=== PATIENT | male | born 1965 | race Hispanic/Latino ===

== ENCOUNTER 2021-06-05 14:24 | Emergency (ER) | payer OTHER ==
[~2021-06-05] VITALS: Ht 160 cm; Wt 90.7 kg
[2021-06-05 15:06] LABS: BASOPHILS % (AUTO) 0.3 % (0.0-5.0); EOSINOPHILS % (AUTO) 0.1 % (0.0-8.0); HEMATOCRIT 31.8 % (42-54); LYMPHOCYTES % (AUTO) 28.3 % (21.0-51.0); MEAN CORPUSCULAR HEMOGLOBIN 30.7 pg (27.0-33.0); MEAN CORPUSCULAR HGB CONC 33.3 g/dL (32.0-36.0); MEAN CORPUSCULAR VOLUME 92.2 fL (79-99); MONOCYTES % (AUTO) 5.8 % (3.0-13.0); PLATELET COUNT (AUTO) 272 K/uL (130-400); RED BLOOD CELL COUNT(AUTO) 3.45 MIL/uL (4.50-6.20); RED CELL DISTRIBUTION WIDTH 13.1 % (11.0-15.5); WHITE BLOOD COUNT (AUTO) 7.6 K/uL (4.8-10.8)
[2021-06-05 15:23] LABS: CREATININE 0.8 mg/dL (0.5-1.5); POTASSIUM 4.2 mmol/L (3.5-5.1)
[2021-06-05 15:27] LABS: ALBUMIN 3.7 g/dL (3.5-5.0); BILIRUBIN,TOTAL 0.2 mg/dL (0.2-1.0); TOTAL PROTEIN, SERUM 7.5 g/dL (6.0-8.3)
[2021-06-05 16:56] LABS: INR 0.98 (0.85-1.15); PROTHROMBIN TIME 10.7 SEC (9.6-11.6)
[2021-06-05 16:57] LABS: PARTIAL THROMBOPLASTIN TIME 25.1 SEC (26.3-35.5)
[2021-06-05 17:01] LABS: APPEARANCE,URINE Cloudy (CLEAR); BILIRUBIN,URINE Negative (NEGATIVE); COLOR,URINE Yellow (YELLOW); GLUCOSE, URINE (UA) 250 mg/dL (NEGATIVE); KETONES,URINE Trace mg/dL (NEGATIVE); LEUKOCYTE ESTERASE ,URINE Moderate (NEGATIVE); NITRATE,URINE Positive (NEGATIVE); OCCULT BLOOD,URINE Negative (NEGATIVE); PROTEIN,URINE Negative (NEGATIVE); UROBILINOGEN,URINE 0.2 mg/dL (0.2-1.0)
[2021-06-05 17:13] LABS: BACTERIA,URINE Moderate /HPF (None Seen); MUCUS,URINE Few LPF (None Seen); SQUAMOUS EPITHELIAL CELL,UR Few /HPF (0-2)
[2021-06-05 19:23] VITALS: BP 119/56
[2021-06-05] MEDS ORDERED: HYDR25SU38 RC (19:27)
[2021-06-05] MEDS ORDERED: FAMO-136 PO (19:27)
[2021-06-05] MEDS ORDERED: CIPR-278 PO (19:27)
== END 2021-06-05 20:27 | disposition home or self-care (01) ==
LOC: EDH 14:24
DX: N30.00 Acute cystitis without hematuria (principal); D64.9 Anemia, unspecified; K62.5 Hemorrhage of anus and rectum; E11.9 Type 2 diabetes mellitus without complications; I10 Essential (primary) hypertension
CPT/HCPCS: 36415; 80053; 81001; 82270; 85025; 85610; 85730; 87077; 87088; 87186

== ENCOUNTER 2024-10-14 15:00 | Emergency (ER) | payer OTHER, MEDICARE ==
[~2024-10-14] VITALS: Ht 160 cm; Wt 97.5 kg
[~2024-10-14 15:00] MED LIST: CIPR-278 PO; FAMO-136 PO; HYDR25SU38 RC
[2024-10-14] MEDS: ORPHENADRINE 60MG/2ML IM ONE (17:23)
[2024-10-14] MEDS: ketOROlac 15MG/ML VIAL (15MG/ML) IM ONE (17:23)
[2024-10-14] MEDS ORDERED: CYCL10TA16 PO (18:11)
[2024-10-14] MEDS ORDERED: KETO10TA2 PO (18:11)
[2024-10-14] MEDS ORDERED: GABA-529 PO (18:11)
--- NOTE | 2024-10-14 18:11 | ERN ---
General Chief Complaint: Low Back Pain/Injury Stated Complaint: HIP PAIN Time Seen by MD: 16:34 Time Seen by Midlevel: 16:34 Source: patient History of Present Illness Initial Comments The patient is a 59-year-old female presenting to the emergency department with left-sided hip pain that radiates to her lower leg. Pain has been ongoing for one week. She denies any recent fall or direct injury to the area. The pain is described as sharp stabbing sensation. No other symptoms reported at this time. She specifically denies any urinary/bowel incontinence. Denies any focal weakness. Allergies: Coded Allergies: No Known Drug Allergies (Unverified Allergy, Unknown, 10/14/24) Home Meds Active Scripts Cyclobenzaprine HCl (Flexeril) 10 Mg Tab, 10 MG PO BID for muscle sstiffness for 7 Days, #14 TAB 0 Refills Prov:HOMERO VANN 10/14/24 Ketorolac Tromethamine (Ketorolac Tromethamine) 10 Mg Tablet, 1 TAB PO BID for pain for 5 Days, #10 TAB 0 Refills Prov:HOMERO VANN 10/14/24 Gabapentin (Gabapentin) 100 Mg Capsule, 1 CAP PO TID for 7 Days, #21 CAP 0 Refills Prov:HOMERO VANN 10/14/24 Ciprofloxacin HCl (Cipro) 500 Mg Tablet, 1 TAB PO BID for 7 Days, #15 TAB 0 Refills Prov:AVIVA JUSTIN MD 06/05/21 Hydrocortisone Acetate (Anusol-Hc) 25 Mg Supp.rect, 25 MG RC TID for 7 Days, #30 EA 0 Refills Prov:AVIVA JUSTIN MD 06/05/21 Famotidine (Pepcid) 20 Mg Tablet, 20 MG PO BID for 14 Days, #30 TAB 0 Refills Prov:AVIVA JUSTIN MD 06/05/21 Past Medical History Past Medical History: Diabetes-Type II, Hypertension Past Surgical History: None Surgical History Other: LEG STENT ROS Dictation CONSTITUTIONAL: Negative except for HPI HEAD/FACE: Negative except for HPI EENT: Negative except for HPI RESPIRATORY: Negative except for HPI GASTROINTESTINAL/ABDOMINAL: Negative except for HPI GENITOURINARY: Negative except for HPI MUSCULOSKELETAL: Negative except for HPI INTEGUMENTARY: Negative except for HPI NEUROLOGICAL/PSYCH: Negative except for HPI HEMATOLOGIC/LYMPHATIC: Negative except for HPI All Systems Negative, Except as noted above. 13 point review of systems assessed and all negative except for above. Physical Exam Physical Exam Dictation Vital Signs reviewed General Appearance: Alert, oriented x 3, no acute distress, well developed, nourished. Head and Face: non-traumatic. Eyes: PERRL, pink conjunctivas, eyelid no trauma, anterior chamber with arcus senilis. Ears: Pinnas intact and no signs of trauma or erythema ear canals clear and no discharge TM no erythema Nose: No discharge, no bleeding. Oropharynx: Mouth normal, tongue pink, pharynx clear,no erythema, tonsils no exudates, no abscesses noted, mucous membrane moist Neck: Supple, non-tender, no thyromegaly, no masses, no JVD, no bruits Breast:Deferred Chest:No tenderness, no crepitus, no paradoxical movement, no retractions Lungs:Clear, well-ventilated, symmetric, no rales, no wheezing, no rhonchi, no stridor, good breath sounds bilaterally Heart: Regular rate, regular rhythm, no murmur, no gallops Vascular: no peripheral edema, Abdomen: Soft, positive bowel sounds, nondistended, no guarding, nontender, no rebound, no masses no hepatomegaly, no splenomegaly, no Pascual's sign, no hernias. Rectal: Deferred Genital: Deferred Neurological: Normal speech, motor function intact, sensory function intact Musculoskeletal: Neck nontender, full range of motion, back nontender, full range of motion, Extremities: nontender, full range of motion Skin: Color pink, dry, no turgor, no rash, no lacerations, no abrasions, no contusions. Lymphatic: Deferred MDM MDM: The patient is a 59-year-old female presenting to the emergency department with left-sided hip pain that radiates to her lower leg. Pain has been ongoing for one week. She denies any recent fall or direct injury to the area. The pain is described as sharp stabbing sensation. No other symptoms reported at this time. She specifically denies any urinary/bowel incontinence. Denies any focal weakness. On physical examination the patient has reproducible pain to the left hip. No point tenderness was noted. She was no vertebral point tenderness. Sensation is intact. Left lower extremity is neurovascularly intact. Symptoms are consistent with sciatica however the patient was insisting that performed imaging to rule out an acute fracture. She does report falling many years ago and since then has had issues with her left hip. She specifically denies any recent injury. X-ray of the left hip and lumbar did not reveal any acute fracture or dislocation. Patient was given Norflex and Toradol in the emergency department and will be discharged home with supportive management. Differential diagnosis: Sciatica, fracture, contusion There are no social concerns with this patient. Prescription drug management Prescriptions will include: Gabapentin Toradol Medical management and examination interpretation discussions were had by me with other qualified healthcare professionals as indicated for the patient's care. ED Course Orders Procedure Category Date Status Time Lumbar Spine 2-3vws RAD 10/14/24 Taken 17:10 Pelvis 1-2vws RAD 10/14/24 Taken 17:10 Ketorolac PHA 10/14/24 Complete Tromethamine 15mg/Ml 17:30 Orphenadrine Citrate PHA 10/14/24 Complete (Norflex) 17:30 Current Medications Medications (Trade) Dose Ordered Sig/Sae Route PRN Reason Start Time Stop Time Status Last Admin Dose Admin Ketorolac Tromethamine (toRADol) 15 mg ONCE ONCE IM 10/14/24 17:30 10/14/24 17:31 DC 10/14/24 17:23 Orphenadrine Citrate (Norflex) 60 mg ONCE ONCE IM 10/14/24 17:30 10/14/24 17:31 DC 10/14/24 17:23 Vital Signs Date Time Temp Pulse Resp B/P (MAP) Pulse Ox O2 Delivery O2 Flow Rate FiO2 10/14/24 18:16 97.2 71 18 118/61 96 Room Air* 0 21 10/14/24 16:00 97.5 78 20 121/63 96 Room Air* 0 21 10/14/24 15:05 97.5 81 16 157/52 98 Room Air 0 DX & DISP Disposition: Discharge Departure Impression: Primary Impression: Left sided sciatica Condition: Stable Scripts Cyclobenzaprine HCl (Flexeril) 10 Mg Tab 10 MG PO BID for muscle sstiffness for 7 Days, #14 TAB 0 Refills Prov: HOMERO VANN 10/14/24 Ketorolac Tromethamine (Ketorolac Tromethamine) 10 Mg Tablet 1 TAB PO BID for pain for 5 Days, #10 TAB 0 Refills Prov: HOMERO VANN 10/14/24 Gabapentin (Gabapentin) 100 Mg Capsule 1 CAP PO TID for 7 Days, #21 CAP 0 Refills Prov: HOMERO VANN 10/14/24 Referrals: CORRINA BARRY M.D. (PCP) Time of Disposition: 18:10 I have reviewed the case, and I agree with, Diagnosis and Plan I performed the substantive portion of the visit. I have reviewed and personally made and approve the management plan that is documented in the note by myself or the DIANELYS. I acknowledge for responsibility for the patient's management plan. HOMERO VANN Oct 14, 2024 18:11 BLUE CHRISTENSEN DO Oct 14, 2024 18:18
[2024-10-14 18:16] VITALS: BP 118/61; PULSE 71; RESP 18; TEMP 97.1; O2SAT 96
--- NOTE | 2024-10-14 18:20 | HMCIMG ---
PELVIS RADIOGRAPH (1 VIEW) INDICATION: Pain COMPARISON: None FINDINGS: No evidence for acute fracture or dislocation. Sacroiliac joints appear normal. Both hip joints appear normal. Bilateral iliac vascular stents. Mild calcific plaque along the inflow and outflow arterial ford. IMPRESSION: No radiographic evidence for fracture or dislocation.
--- NOTE | 2024-10-14 18:20 | HMCIMG ---
LUMBAR SPINE RADIOGRAPHS - 2-3 VIEWS INDICATION: Fracture evaluation COMPARISON: None FINDINGS: AP, lateral, and coned-down lateral views. Normal lordotic curvature of the lumbar spine is maintained. Shallow lumbar dextroscoliosis. Five nonrib-bearing lumbar vertebral bodies are noted. No acute fracture or subluxation identified. Vertebral body heights are well-maintained. Multilevel mild to moderate anterior endplate osteophytic spurring. Moderate disc height loss at the L5-S1 greater than L4-L5 levels with mild vacuum disc nominal at both levels. Chronic degenerative endplate changes at the L2-L3 level. Multilevel mild to moderate bilateral facet disease. Bilateral iliac vascular stents. IMPRESSION: No fracture or subluxation identified.
== END 2024-10-14 18:21 | disposition home or self-care (01) ==
LOC: EDH 15:00 → EDSEX 15:00 → EDH 18:21
DX: M54.32 Sciatica, left side (principal); E11.9 Type 2 diabetes mellitus without complications; I10 Essential (primary) hypertension; Z79.899 Other long term (current) drug therapy
CPT/HCPCS: 99284; 72100; 72170; 96372 ×2; J1885; J2360